=== PATIENT | male | born 2000 | race Caucasian/White ===

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

== ENCOUNTER 2022-11-17 15:17 | Outpatient (CLI) | payer MEDICAID ==
[2022-11-17 18:02] LABS: BASOPHILS % (AUTO) 0.3 %; EOSINOPHILS # (AUTO) 0.2 10^3/uL (0.0-0.7); EOSINOPHILS % (AUTO) 3.7 %; HCT - HEMATOCRIT 46.5 % (42.0-52.0); LYMPHOCYTES # (AUTO) 1.8 10^3/uL (1.5-3.5); LYMPHOCYTES % (AUTO) 30.9 %; MEAN CORPUSCULAR HEMOGLOBIN 31.6 pg (27.0-31.0); MEAN CORPUSCULAR HGB CONC 34.4 g/dL (32.0-36.0); MEAN CORPUSCULAR VOLUME 91.9 fL (80.0-94.0); MEAN PLATELET VOLUME 9.5 fL (7.4-11.4); MONOCYTES # (AUTO) 0.3 10^3/uL (0.0-1.0); MONOCYTES % (AUTO) 5.7 %; NEUTROPHILS # (AUTO) 3.5 10^3/uL (1.5-6.6); NEUTROPHILS % (AUTO) 59.2 %; PLT - PLATELET COUNT 247 10^3/uL (130-450); RED BLOOD COUNT 5.06 10^6/uL (4.70-6.10); RED CELL DISTRIBUTION WIDTH 11.7 % (12.0-15.0)
[2022-11-17 18:06] LABS: BILIRUBIN,URINE NEGATIVE (NEGATIVE); GLUCOSE, URINE (UA) NEGATIVE (NEGATIVE); KETONES,URINE (UA) NEGATIVE (NEGATIVE); LEUKOCYTE ESTERASE, URINE NEGATIVE (NEGATIVE); NITRITE,URINE NEGATIVE (NEGATIVE); OCCULT BLOOD,URINE NEGATIVE (NEGATIVE); PROTEIN,URINE NEGATIVE (NEGATIVE); UROBILINOGEN,URINE 0.2 (NORMAL) E.U./dL (NORMAL)
[2022-11-17 18:25] LABS: AMORPHOUS SEDIMENT,UR Few /LPF; BACTERIA,URINE None Seen /HPF (None Seen); CLARITY,URINE HAZY (CLEAR); RBC,URINE None Seen /HPF (0-5); SQUAMOUS EPITHELIAL CELL,UR NONE SEEN (<= Few); WBC,URINE 0-3 /HPF (0-3)
[2022-11-17 18:51] LABS: ALBUMIN 4.7 g/dL (3.2-5.5); ALBUMIN/GLOBULIN RATIO 1.6 (1.0-2.2); BILIRUBIN,TOTAL 0.6 mg/dL (0.2-1.0); CALCIUM 11.3 mg/dL (8.5-10.3); CREATININE 0.8 mg/dL (0.6-1.2); TOTAL PROTEIN 7.7 g/dL (6.7-8.2)
[2022-11-17 19:01] LABS: THYROID STIMULATING HORMONE 1.1 uIU/mL (0.34-5.60)
== END 2022-11-17 15:18 | disposition home or self-care (01) ==
LOC: LAB.N 15:17
PROVIDERS: ATTEND Nurse Practitioner Family
DX: K62.5 Hemorrhage of anus and rectum (principal); G47.19 Other hypersomnia; F41.9 Anxiety disorder, unspecified; F32.A Depression, unspecified
CPT/HCPCS: 36415; 80053; 81001; 84443; 85025; 87086

== ENCOUNTER 2022-11-20 17:49 | Outpatient (CLI) | payer MEDICAID ==
[2022-11-20 21:25] LABS: CALCIUM 10.3 mg/dL (8.5-10.3); POTASSIUM 3.6 mmol/L (3.5-5.0)
[2022-11-22 09:08] LABS: CALCIUM IONIZED SERUM 5.1 mg/dL (4.5-5.6)
[2022-11-22 10:07] LABS: VITAMIN D 25-HYDROXY 18.2 ng/mL (30.0-100.0)
== END 2022-11-20 17:50 | disposition home or self-care (01) ==
LOC: LAB.N 17:49
PROVIDERS: ATTEND Family Medicine
DX: E83.52 Hypercalcemia (principal)
CPT/HCPCS: 36415; 80048; 82306; 82330; 83970

== ENCOUNTER 2023-01-21 15:45 | Outpatient (CLI) | payer MEDICAID ==
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
[2023-01-21 16:46] VITALS: BP 120/70
== END 2023-01-21 15:46 | disposition home or self-care (01) ==
LOC: SC 15:45
PROVIDERS: ATTEND Nurse Practitioner Family
DX: G47.10 Hypersomnia, unspecified (principal); R53.83 Other fatigue; R51.9 Headache, unspecified; G47.8 Other sleep disorders; R06.83 Snoring; R06.81 Apnea, not elsewhere classified; F32.A Depression, unspecified
CPT/HCPCS: 99203; 99212

== ENCOUNTER 2023-02-15 19:32 | Outpatient (CLI) | payer MEDICAID | END 2023-02-15 19:33 | disposition home or self-care (01) | LOC: SC 19:32 | PROVIDERS: ATTEND Nurse Practitioner Family | DX: G47.33 Obstructive sleep apnea (adult) (pediatric) (principal) | CPT/HCPCS: 95810 ==

== ENCOUNTER 2023-03-09 15:03 | Outpatient (CLI) | payer MEDICAID ==
--- NOTE | 2023-03-09 16:00 | Sleep Patient Instructions ---
Sleep Center Visit Summary - Patient Visit Information Reason for Visit: Sleep study followup - Patient Instructions Instructions Attached: CPAP, CPAP Dc Additional Instructions: You are being started on CPAP therapy with pressure setting at 4-15 cmH2O. You will need to call the sleep care office to set up your follow up once you have your APAP machine and we will schedule a visit to check compliance and response to therapy at that time. You may call the office with any concerns about pressure feeling too low or too much for adjustment, if needed. You should contact DME for any questions or concerns about mask or equipment. Please follow up in the sleep care office one month after you obtain your CPAP. - Clinic Information Contact: [facility] [address] [place] [address] [email or web address] T: [phone]
--- NOTE | 2023-03-09 16:02 | SLEEP CARE CONSULTATION ---
Information from patient questionnaire entered by Carolina Gupta. I have reviewed and concur with the information entered by Carolina Gupta. This document represents the service I personally performed and the decisions made by , Anika Del Rio ARNP. History of Present Illness Service Date and Time: 03/09/2023 1503 Initial [place] Sleepiness Scale score: 19 (01/21/23) Current [place] Sleepiness Scale score: 17 (03/09/23) Additional HPI information: DINH CHU returns for follow up and results of the recently performed polysomnography. I explained the pathophysiology behind obstructive sleep apnea. We then spent quite a bit of time discussing different treatment options. For mild obstructive sleep apnea, surgery and oral appliance are alternatives to nasal CPAP therapy but in moderate or severe cases, nasal CPAP is the most effective and reliable treatment. Because apnea is primarily in supine position, then positional management therapy could be effective. Methods discussed such as positioning with pillows, using a T-shirt with tennis balls in the back or commercial products that have a pillow format on back to prevent supine sleep. I reviewed the impact of weight changes on sleep apnea and strongly recommended losing weight. After some discussion, the patient opted to go with the nasal CPAP therapy. Nasal autoCPAP set at 4-15 cmH20 will be ordered with rationale explained. A manual titration study will be ordered if unable to find optimal pressure with office adjustments. I explained how CPAP machine works and what to expect when using the machine. Using CPAP every night in order to get used to it was emphasized. Patient advised to put CPAP mask on before getting into bed so as not to fall asleep without CPAP. To assist acclimation to CPAP use, it could also be used for a short time during day while reading or watching TV. The patient was instructed to call the CPAP supplier to discuss any mechanical problem that may occur. If the mask given is uncomfortable or is difficult to keep on through the night even with adjustment, contact the CPAP supplier as many will replace with another mask style if notified before 30 days. If snoring or perceives is not getting enough air or too much air from the machine, notify this office. Patient counseled not drink alcohol less than 4 hours before bedtime as it can increase snoring and apnea. Patient was cautioned about risks of drowsy driving until sleepiness symptoms resolve. Sleep Study - Results Type of Sleep Study: Polysomnography (COMPLETED 02/15/23) Prior sleep studies: No Polysomnography/Home Sleep Study results: IMPRESSION: The quality of the study is good. The patient had normal sleep efficiency. The sleep architecture was abnormal for sleep fragmentation and reduced amount of time spent in REM sleep. Respiratory monitoring showed mild obstructive sleep apnea-hypopnea (AHI = 14.3) associated with frequent arousals, oxyhemoglobin desaturation and mild hypoxia (marcia oxygen saturation of 84%). The respiratory events occurred almost exclusively during supine sleep (supine AHI = 22.9; non-supine = 1.42). Snore was loud in intensity. There was mild periodic leg movement of sleep not contributing to the sleep fragmentation. Cardiac rhythm was normal sinus rhythm without significant arrhythmia. No abnormal behavior (parasomnia) observed during the night. Allergies and Home Medications Known drug allergies: No Drug allergies reviewed: Yes Home medication list reviewed: Yes (no changes) Allergy and home medication list: Allergies No Known Drug Allergies Allergy (Verified 03/05/23 15:44) Review of Systems Review of systems same as previous: Yes (no changes) Physical Exam Vital signs obtained and entered by: CAROLINA Mendoza MA Blood Pressure: 100/70 (LEFT ARM) Cuff size: regular Heart Rate: 73 O2 Saturation: 98 Height: 6 ft Weight: 182 lb 12.8 oz Body Mass Index: 24.7 BMI Classification: Normal Impression and Plan 1. Obstructive Sleep Apnea-Hypopnea Syndrome, mild, with lowest oxygen saturation of 84%. Obviously this is the cause of the patients symptoms of unrefreshed sleep, and excessive daytime sleepiness. Positive pressure therapy could benefit anxiety and depression. As mentioned above, the patient will be started on nasal autoCPAP therapy with pressure set at 4-15 cmH2O. A manual titration study will be completed if unable to find optimal treatment pressure with office adjustments. Compliance guidelines also reviewed. A copy of compliance guidelines will be given for reference at check out. Because the apne a is more severe supine, I instructed to avoid sleeping supine using pillow positioning until able to start CPAP use. 2. Hypoxemia, mild, with a marcia oxygen saturation of 84% and 5.9 minutes spent under 90%. His baseline oxygen saturation was normal with an average oxygen saturation of 95%. 3. Periodic limb movement, mild, that did not fragment patients sleep. Periodic limb movement of sleep (PLMS) is characterized by episodes of repetitive limb movements that occur during sleep and usually involve the lower limbs. The etiology is unknown. Caffeine can aggravate PLMS and should be avoided. Sleep hygiene methods can also improve sleep as well as lifestyle changes such as regular exercise. Patient was advised that no treatment is needed at this time. If symptoms increase, then further evaluation is indicated. * Nasal auto CPAP therapy, pressure at 4-15 cm H2O. * Avoid alcohol consumption near bedtime. * Avoid supine sleep until using CPAP. * The patient is again cautioned about driving until sleepiness completely resolves. * Return one month after CPAP obtained. I will assess response to therapy and compliance at that time. Counseling Topics: Sleeping position Prescriptions: Auto CPAP Visit Type: In Office Time Spent with Patient (minutes): 20 Provider Statement: I spent 100% of the Face to Face Visit with the patient with greater than 50% spent counseling the patient and coordination of care.
[2023-03-09 16:05] VITALS: BP 100/70
== END 2023-03-09 15:04 | disposition home or self-care (01) ==
LOC: SC 15:03 → EEVIPCON 15:20
PROVIDERS: ATTEND Nurse Practitioner Family
DX: G47.33 Obstructive sleep apnea (adult) (pediatric) (principal); R09.02 Hypoxemia; G47.61 Periodic limb movement disorder
CPT/HCPCS: 99212; 99213

== ENCOUNTER 2023-03-27 22:12 | Emergency (ER) | payer OTHER, BC ==
--- NOTE | 2023-03-28 00:11 | ED Physician Documentation ---
PD HPI DYSPNEA - Stated complaint Stated Complaint: SOA - Chief complaint Chief Complaint: Resp - History obtained from History obtained from: Patient - Additional information Additional information: HPI from patient. Patient complains of shortness of breath. This started a few days ago, slowly steadily worsening during the day today. He has no other complaints. He does not have a history of similar symptoms. He denies fever, cough, leg swelling, chest pain. Review of Systems Constitutional: denies: Fever, Chills, Sweats Throat: denies: Sore throat Cardiac: denies: Chest pain / pressure, Palpitations, Pedal edema Respiratory: reports: Dyspnea. denies: Cough, Hemoptysis, Wheezing PD PAST MEDICAL HISTORY - Past Medical History Past Medical History: No - Present Medications Home Medications: Ambulatory Orders Medication Instructions Recorded Confirmed No Known Home Medications 01/21/23 03/09/23 - Allergies Allergies/Adverse Reactions: Allergies Allergy/AdvReac Type Severity Reaction Status Date / Time No Known Drug Allergies Allergy Verified 03/09/23 15:34 PD ED PE NORMAL - Vitals Vital signs reviewed: Yes - General General: Alert and oriented X 3, No acute distress, Well developed/nourished - Cardiac Cardiac: RRR, No murmur - Respiratory Respiratory: No respiratory distress, Clear bilaterally - Extremities Extremities: No edema Results - Vitals Vitals: Oxygen O2 Source Room air - Rads (name of study) chest xray Relevant Findings:: Prelim report reviewed, EMP independent interpretation of test (I reviewed these images and my interpretation is no acute disease including no evidence of pneumonia, pneumothorax), See rad report PD Medical Decision Making - ED course Complexity details: reviewed results, considered differential, d/w patient ED course: Patient is well-appearing, no distress including no respiratory distress. His lungs are clear to auscultation bilaterally and his pulse ox is 98% on room air. His chief and only complaint is shortness of breath for the past few days. CXR is unremarkable. No further testing nor any specific treatment is indicated at this time. Results of chest x-ray discussed with the patient, return precautions also discussed. Departure - Departure Disposition: 01 Home, Self Care Clinical Impression: Dyspnea Condition: Good Instructions: ED Dyspnea Shortness of Breath Comments: The chest x-ray was normal; there is no evidence of pneumonia or collapsed lung or any other abnormalities that might otherwise explain your shortness of breath.Additionally, your oxygen level during your emergency department stay was monitored and was well within a normal range during your stay. Your lung exam (stethoscopic exam) was also normal, with good airflow on both sides and no wheezing or other abnormal breath sounds). At this time, further testing is unlikely to arrive at, or suggest, diagnosis. However, you should follow-up with your primary care provider if your symptoms persist beyond the weekend. Of course, you can always return to the emergency department if your symptoms worsen in any way, or if you develop new/concerning signs/symptoms (such as worsening shortness of breath, persistent coughing, fever, chest pain). Discharge Date/Time: 03/28/23 02:40
--- NOTE | 2023-03-28 01:55 | XRAY Report ---
PROCEDURE: Chest 2 View X-Ray INDICATIONS: dyspnea TECHNIQUE: 2 views of the chest were acquired. COMPARISON: None. FINDINGS: Surgical changes and devices: None. Lungs and pleura: No pleural effusions or pneumothorax. Lungs are clear. Mediastinum: Mediastinal contours appear normal. Heart size is normal. Bones and chest wall: No suspicious bony lesions. Overlying soft tissues appear unremarkable. IMPRESSION: No acute cardiopulmonary process. Reviewed by: Felix Morgan MD on 03/28/2023 1:54 AM PDT Approved by: Felix Morgan MD on 03/28/2023 1:54 AM PDT Station ID: [id number]
[2023-03-28 02:42] VITALS: BP 115/43
== END 2023-03-28 02:40 | disposition home or self-care (01) ==
LOC: ED 22:12
DX: R06.00 Dyspnea, unspecified (principal)
CPT/HCPCS: 99283

== ENCOUNTER 2023-05-14 08:43 | Outpatient (CLI) | payer OTHER, BC ==
--- NOTE | 2023-05-14 09:02 | Sleep Patient Instructions ---
Sleep Center Visit Summary - Patient Visit Information Reason for Visit: 1st Compliance visit with CPAP therapy - Patient Instructions Additional Instructions: You were here for follow up of CPAP therapy. You will be continued on CPAP therapy with pressure at 14-16 cmH2O. Please let us know if the pressure change is uncomfortable and we can make further adjustments of the pressure. You should follow up with sleep care in 1-2 months. You may contact us sooner for any questions or concerns. - Clinic Information Contact: [facility] [address] [place] [address] [email or web address] T: [phone]
--- NOTE | 2023-05-14 09:04 | SLEEP CARE CONSULTATION ---
Information from patient questionnaire entered by Zenaida Gupta. I have reviewed and concur with the information entered by Zenaida Gupta. This document represents the service I personally performed and the decisions made by , Anika Del Rio ARNP. History of Present Illness Service Date and Time: 05/14/2023 0843 Previous diagnosis: Mild, Obstructive Sleep Apnea-Hypopnea Syndrome AHI: 14.3 (in 2022) Reason for follow up: first compliance Equipment type: CPAP (RESMED Airsense 11, 03/2023) Equipment obtained from: Other ([facility]; got initial supplies) Mask style: Full face Mask brand: [id number] [id number] Backup mask available: No (will keep old mask when replaced) Last cushion change: today Prior sleep studies: No Type of Sleep Study: Polysomnography (COMPLETED 02/15/23) HPI additional information: KLARISSA CHU was diagnosed to have mild, AHI 14.3, obstructive sleep apnea- hypopnea syndrome and returned today for CPAP therapy first compliance follow- up. Sleep Study - Results Type of Sleep Study: Polysomnography (COMPLETED 02/15/23) Prior sleep studies: No CPAP Compliance Data - Data Reviewed with Patient Average duration of nightly device use: 6 hours 1 min Compliance rate %: 77 (04/10/23-05/09/23; days used) Current pressure setting (cmH2O): 4-15 (median 10.7, avg 13.7, max 14.5) Average residual AHI: 4.8 Central apnea: 0.5 Obstructive apnea: 3.6 Hypopnea: 0.6 Average large leak: 0 L/min Subjective Patient concerns: denies: aerophagia, mask discomfort, air blowing in eyes, mask leak noise, condensation in mask/hose, nasal congestion, dry mouth, nose, throat, epistaxis Current pressure setting perceived as: too low On therapy, patient: reports: sleeping better, awakening more refreshed. denies: drowsiness while driving Initial [place] Sleepiness Scale score: 19 (01/21/23) Current [place] Sleepiness Scale score: 16 (05/14/23) Allergies and Home Medications Known drug allergies: No Drug allergies reviewed: Yes Home medication list reviewed: Yes (no changes) Allergy and home medication list: Allergies No Known Drug Allergies Allergy (Verified 05/13/23 12:59) Review of Systems Review of systems same as previous: Yes (no changes) Physical Exam Vital signs obtained and entered by: ZENAIDA Mendoza MA Blood Pressure: 128/78 (LEFT ARM) Cuff size: regular Heart Rate: 65 O2 Saturation: 98 Height: 6 ft Weight: 190 lb 6.4 oz Body Mass Index: 25.8 BMI Classification: Overweight Impression and Plan 1. Obstructive Sleep Apnea-Hypopnea Syndrome, mild, with good treatment compliance and good apnea control. On CPAP therapy, the patient has better sleep quality and is more rested overall. He has noted a slight difference in his daytime fatigue and refreshed sleep. He does feel the pressure is too low. He is using a fullface mask, 3B Siesta. The patients pressure will be changed to autoCPAP 14-16 cmH20 to reflect pressure being used. Patient advised to contact me if pressure change is uncomfortable so that it can be adjusted. Goals for apnea control discussed. Patient's apnea severity and rationale for treatment to reduce apnea, improve sleep quality and reduce cardiovascular and cerebrovascular events was reviewed. I also reviewed the benefit of consistent device use of CPAP for depression/anxiety. 2. Overweight, unspecified. Currently patients BMI is 25.8. He is wearing steel toe boots today. Obesity increases the risk of apnea, CPAP pressure requirements and overall health risks especially cardiovascular and diabetes. Thus patient is advised to maintain healthy weight. * Change auto CPAP pressure to 14-16 cmH2O * Notify me if snoring with mask or feeling that the pressure is too much or too little * Attempt to lose weight * Call this office if any problems using CPAP * Return for follow up in 1-2 months, or sooner if concerns arise Counseling Topics: Spare mask, Weight loss health impact Visit Type: In Office Time Spent with Patient (minutes): 13 Provider Statement: I spent 100% of the Face to Face Visit with the patient with greater than 50% spent counseling the patient and coordination of care.
[2023-05-14 09:10] VITALS: BP 128/78
== END 2023-05-14 08:44 | disposition home or self-care (01) ==
LOC: SC 08:43
PROVIDERS: ATTEND Nurse Practitioner Family
DX: G47.33 Obstructive sleep apnea (adult) (pediatric) (principal); E66.3 Overweight; Z68.25 Body mass index [BMI] 25.0-25.9, adult
CPT/HCPCS: 99212

== ENCOUNTER 2023-06-15 10:32 | Outpatient (CLI) | payer OTHER, BC ==
--- NOTE | 2023-06-15 10:57 | Sleep Patient Instructions ---
Sleep Center Visit Summary - Patient Visit Information Reason for Visit: One Month followup of PAP therapy - Patient Instructions Additional Instructions: You were here for follow up of CPAP therapy. You will be continued on CPAPBiPAP therapy with pressure at 14-16 cmH2O. You should follow up with sleep care in 3 months. You may contact us sooner for any questions or concerns. - Clinic Information Contact: [facility] [address] [place] [id number] [email or web address] T: [phone]
--- NOTE | 2023-06-15 10:59 | SLEEP CARE CONSULTATION ---
Information from patient questionnaire entered by Zenaida Gupta. I have reviewed and concur with the information entered by Zenaida Gupta. This document represents the service I personally performed and the decisions made by , Anika Del Rio ARNP. History of Present Illness Service Date and Time: 06/15/2023 1032 Previous diagnosis: Mild, Obstructive Sleep Apnea-Hypopnea Syndrome AHI: 14.3 (02/2023) Reason for follow up: one month (F/U PRESSURE CHANGE) Equipment type: CPAP (RESMED Airsense 11, s/u 03/2023) Equipment obtained from: Other ([facility];) Mask style: Full face Backup mask available: Yes (other mask) Last cushion change: less than month ago Prior sleep studies: No Type of Sleep Study: Polysomnography (COMPLETED 02/15/23) HPI additional information: KLARISSA CHU was diagnosed to have mild, AHI 14.3, obstructive sleep apnea- hypopnea syndrome and returned today for CPAP therapy one month follow-up. Sleep Study - Results Type of Sleep Study: Polysomnography (COMPLETED 02/15/23) Prior sleep studies: No CPAP Compliance Data - Data Reviewed with Patient Average duration of nightly device use: 5 hours 1 minute Compliance rate %: 43 ( days used) Current pressure setting (cmH2O): 14-16 Average residual AHI: 4.1 Central apnea: 0.9 Obstructive apnea: 2.4 Hypopnea: 0.7 Average large leak: 0.7 L/min Subjective Missed days of use due to: reports: other (falling asleep without mask on) Patient concerns: denies: aerophagia, mask discomfort, air blowing in eyes, mask leak noise, condensation in mask/hose, nasal congestion, dry mouth, nose, throat, epistaxis Observed to snore while using device: No Current pressure setting perceived as: comfortable On therapy, patient: reports: sleeping better, awakening more refreshed, being m ore awake and alert during the day, more rested overall. denies: drowsiness while driving Initial [place] Sleepiness Scale score: 19 (01/21/23) Current [place] Sleepiness Scale score: 15 (06/15/23) Allergies and Home Medications Known drug allergies: No Drug allergies reviewed: Yes Home medication list reviewed: Yes (no changes) Allergy and home medication list: Allergies No Known Drug Allergies Allergy (Verified 06/11/23 09:26) Review of Systems Review of systems same as previous: Yes (no changes) Physical Exam Vital signs obtained and entered by: ZENAIDA Mendoza MA Blood Pressure: 110/70 (LEFT ARM) Cuff size: regular Heart Rate: 56 O2 Saturation: 100 Height: 6 ft Weight: 178 lb 9.6 oz Body Mass Index: 24.2 BMI Classification: Normal Impression and Plan 1. Obstructive Sleep Apnea-Hypopnea Syndrome, mild, with fair treatment compliance and good apnea control. On CPAP therapy, the patient has better sleep quality and is more rested overall. Patient states he has been just falling asleep without the mask on while talking to his fiance. I encouraged him to try and remember to put the mask on every night to increase his compliance. He did reach his initial compliance at his last visit. He voiced understanding and agreement with this plan of care. Patient has significant improvement of their sleep apnea and is satisfied with current CPAP therapy. Patient denies problems with oral dryness, nasal congestion, epistaxis, skin irritation or aerophagia. Patient's apnea severity and rationale for treatment to reduce apnea, improve sleep quality and reduce cardiovascular and cerebrovascular events was reviewed. I also reviewed the benefit of consistent device use of CPAP for depressio n/anxiety. * Continue auto CPAP pressure at 14-16 cmH2O * Notify me if snoring with mask or feeling that the pressure is too much or too little * Maintain healthy weight * Call this office if any problems using CPAP * Return for follow up in 3 months, or sooner if concerns arise Counseling Topics: Spare mask, Weight control Visit Type: In Office Time Spent with Patient (minutes): 14 Provider Statement: I spent 100% of the Face to Face Visit with the patient with greater than 50% spent counseling the patient and coordination of care.
[2023-06-15 11:01] VITALS: BP 110/70; O2SAT 100
== END 2023-06-15 10:33 | disposition home or self-care (01) ==
LOC: SC 10:32
PROVIDERS: ATTEND Nurse Practitioner Family
DX: G47.33 Obstructive sleep apnea (adult) (pediatric) (principal)
CPT/HCPCS: 99212